=== PATIENT | female | born 1965 | race Asian ===

== ENCOUNTER 2017-09-18 17:01 | Observation (INO) | payer OTHER ==
[~2017-09-18] VITALS: Ht 167.6 cm; Wt 67.3 kg
[2017-09-18 17:25] VITALS: BP 102/73; TEMP 97.8
[2017-09-18 18:52] LABS: PLATELET COUNT 204 K/uL (152-353)
[2017-09-18 18:59] LABS: POTASSIUM 3.5 mmol/L (3.6-5.2)
[2017-09-18 22:43] VITALS: BP 108/75; TEMP 97.6; Ht 167.6 cm; Wt 67.3 kg
[2017-09-19] VITALS (7 sets, daily range): BP systolic 105–115; BP diastolic 73–83; TEMP 97.5–98.2
--- NOTE | 2017-09-19 00:38 | NUR ---
09/18/17 2105 TO ROOM 1108 DX CHF ADMITTED FROM ER.PT CAME INTO ER WITH SHORTNES OF BREATH AND TERRY PT IS VISITING FROM [facility].HAS A HX OF SOME CHF LUPUS HTN, HYSTERECTOMY.PT IS HAVING LABORED BREATHING ON EXCERTION O2 SAT 98 PERCENT IRREGUALR HEART RATE.SALINE LOCK TO RIGH AC INTACT.HOB HIGH FOWLERS'S ENCOURAGED PT TO LIMIT FLUID INAKE DUE TO CHF.VITAL SIGNS OBTAINED PER PCT. RESP NOTIFIED ABOUT PT HAVING CONTINOUS MONITORING FOR OXYGEN SATURATION.NO JUGULAR VEIN DISTENTION NOTED.CC 09/18/17 2230 CONTINOUS MONTIOR FOR OXYGEN IN IS ROOM READING 99 PERCENT WITH O2 AT 2LPM.NO JUGULAR VEIN DISTENTION NOTED.CC WEIGHT ON ADMISSION 159.1.CC 09/19/17 0050 AWAKE ALERT HIGH GIBSON'S 02 SAT 100 PERCENT.PT ASKING FOR WARER TO DRINK GIVE PT SMALL CUP ICE WATER ENCOURAGED TO WATCH FLUID INTAKE AT THIS TIME DUE TO DX PT VERBALIZED UNDERSTANDING.CC
[2017-09-19] MEDS ORDERED: KP FOLIC ACID1 MG PO (02:39)
[2017-09-19] MEDS ORDERED: TRAZ50TA36 PO (02:40)
[2017-09-19 05:15] LABS: PLATELET COUNT 173 K/uL (152-353)
[2017-09-19] MEDS ORDERED: FURO20TA67 PO (05:29)
[2017-09-19] MEDS ORDERED: TRAM50TA PO (05:30)
[2017-09-19 05:49] LABS: PARTIAL THROMBOPLASTIN TIME 22.9 SECONDS (24.5-33.6)
[2017-09-19 05:51] LABS: POTASSIUM 3.8 mmol/L (3.6-5.2); SODIUM 140 mmol/L (136-145)
[2017-09-20 04:00] VITALS: BP 109/71; TEMP 98.5
[2017-09-20 05:50] LABS: PLATELET COUNT 172 K/uL (152-353)
[2017-09-20 06:15] LABS: POTASSIUM 2.9 mmol/L (3.6-5.2)
[2017-09-20 08:00] VITALS: BP 116/78; TEMP 98
[2017-09-20] MEDS ORDERED: KLOR-CON M2020 MEQ OR (08:14)
[2017-09-20] MEDS ORDERED: MAGN400T4 PO (08:14)
--- NOTE | 2017-09-20 09:38 | NUR ---
PT IV D/C WITH CANNULA TIP INTACT. PT TOLERATED WELL.
== END 2017-09-20 10:00 | disposition home or self-care (01) ==
LOC: ED 17:01 → MED/SURG 19:40
PROVIDERS: Emergency Medicine
DX: I50.43 Acute on chronic combined systolic (congestive) and diastolic (congestive) heart failure (principal); E83.42 Hypomagnesemia
CPT/HCPCS: 36415; 80053; 80162; 81000; 82550; 82553; 83735; 83880; 84443; 84484; 85027; 85379; 85610; 85730; 93005; 93306; 94760; 96374; 96375; 99220; 99284; G0378; J1650; J1940; J3490; Q9963

== ENCOUNTER 2022-10-12 16:41 | Emergency (ER) | payer OTHER ==
[~2022-10-12] VITALS: Ht 167.6 cm; Wt 75.3 kg
[~2022-10-12 16:41] MED LIST: FURO20TA67 PO; KLOR-CON M2020 MEQ OR; KP FOLIC ACID1 MG PO; MAGN400T4 PO; TRAM50TA PO; TRAZ50TA36 PO
[2022-10-12 17:06] VITALS: BP 129/79; TEMP 97.9
== END 2022-10-12 18:10 | disposition home or self-care (01) ==
LOC: ED 16:41
DX: Z00.00 Encounter for general adult medical examination without abnormal findings (principal)
CPT/HCPCS: 99281